=== PATIENT | female | born 1985 | race Caucasian/White ===

== ENCOUNTER 2017-08-27 06:05 | Day surgery (SDC) | payer MEDICAID ==
[2017-08-26 13:26] LABS: BASOPHILS 0.3 % (0-2); EOSINOPHILS 2.4 % (0-7); HEMATOCRIT 41.8 % (36.0-48.0); HEMOGLOBIN 13.5 g/dL (12-16); IMMATURE GRANULOCYTES 0.2 % (0-5); LYMPHOCYTES 27.3 % (15-50); MCH 25.6 pg (26.0-34.0); MCHC 32.3 g/dL (31.0-37.0); MCV 79.2 fL (80.0-100.0); MEAN PLATELET VOLUME 10.6 fL (7.4-10.4); MONOCYTES 7.3 % (2-11); NEUTROPHILS 62.5 % (40-80); PLATELET COUNT 181 10x3/uL (130-400); RBC 5.28 10x6/uL (4.00-5.40); RDW 15.6 % (11.5-14.5); WBC 10.4 10x3/uL (4.8-10.8)
[~2017-08-27] VITALS: Ht 162.6 cm; Wt 142.0 kg
--- NOTE | ~2017-08-27 | OP ---
PATIENT NAME: GALLITO PARTIDA MEDICAL RECORD: [id number] :87 LOCATION:D.OPS ADMISSION DATE: SURGEON: EILEEN RUIZ MD DATE OF OPERATION: 08/27/2017 PREOPERATIVE DIAGNOSES: 1. Pelvic pain. 2. Vulvar mass. POSTOPERATIVE DIAGNOSES: 1. Pelvic pain. 2. Pelvic adhesive disease, minimal. 3. Vulvar mass. PROCEDURE PERFORMED: 1. Diagnostic laparoscopy. 2. Removal of vulvar mass. SURGEON: Eileen Ruiz MD ANESTHESIOLOGIST: Gigi Alba MD ANESTHESIA: General anesthetic with endotracheal intubation. FINDINGS: Uterus is enlarged and boggy, suspicious for adenomyosis. Both ovaries are visualized and unremarkable. There were omental adhesions above the umbilicus and to the left pelvic sidewall. Filshie clip is visualized on the left tube. The right Filshie clip is not in the pelvis; however, the right tube is interrupted. A fluid-filled mass on the vulva at the posterior fourchette was left to midline. SPECIMEN REMOVED: Vulvar mass. SPECIMEN DISPOSITION: Pathology. ESTIMATED BLOOD LOSS: Less than or equal to 50 cc. FLUIDS: 500 cc of lactated Ringer's. URINE OUTPUT: Quantity sufficient void prior to the procedure. COMPLICATIONS: None. DRAINS: None. INDICATIONS: The patient is a 32-year-old female with pelvic pain. The patient has dyspareunia and dysmenorrhea. The patient also has presence of a vulvar mass which is of concern to her. The patient is consented for diagnostic laparoscopy and removal of vulvar mass and any indicated procedure. DESCRIPTION OF PROCEDURE: After informed consent was assured, the patient was taken to the operating room where she is placed in lithotomy position, and prepped and draped after anesthetic is obtained. An incision is made at the umbilicus to accommodate a 5-mm trocar, which is inserted without difficulty. Pneumoperitoneum was developed and accessory ports were placed in the lower OPERATIVE REPORT [id number] GALLITO PARTIDA pelvis. The above findings were encountered. Using a blunt probe, the bowel was manipulated free of the pelvis. The Filshie clip is not apparent. The tube is noted to be interrupted on the right where the Filshie clip is no longer present. Both ovaries are unremarkable. The uterus is enlarged and boggy. No obvious evidence of endometriosis. Pneumoperitoneum is released as the accessory trocars were removed and the primary trocar was now removed. Skin was reapproximated and Dermabond applied. The legs were positioned for the removal of the vulvar mass. The base is injected with 0.25% Marcaine. An elliptical incision is made across the base and using scissors, the cyst is dissected free. This skin is closed with a subcuticular stitch of Vicryl. Sterile dressing is applied. Sponge, lap, and needle counts correct times 2. The patient was awakened and went to the recovery room in stable condition. TRANSINT:[id number] Voice Confirmation ID: [id number] DOCUMENT ID: [id number] EILEEN RUIZ MD CC: [id number] DICTATION DATE: 09/10/17 0837 RN STARS: 09/10/[address] [facility] 08/27/17 [facility] [address] [place] [address]
[~2017-08-27 06:05] MED LIST: ADIPEX-P37.5 MG PO; NORCO 7.5/325 T1 TA1 PO
[2017-08-27 07:21] VITALS: BP 110/66; Ht 162.6 cm; Wt 142.0 kg
== END 2017-08-27 11:55 | disposition home or self-care (01) ==
LOC: D.OPS 06:05 → D.PAN 08:30 → D.OPS 08:30
PROVIDERS: Obstetrics & Gynecology
DX: R10.2 Pelvic and perineal pain (principal); N90.89 Other specified noninflammatory disorders of vulva and perineum